=== PATIENT | female | born 1945 | race Caucasian/White ===

== ENCOUNTER 2017-06-17 08:28 | Day surgery (SDC) | payer OTHER ==
[~2017-06-17] VITALS: Ht 160 cm; Wt 72.7 kg
[2017-06-17 09:33] VITALS: BP 146/60
[2017-06-17] MEDS ORDERED: CYAN1TAB44 PO (09:49)
[2017-06-17] MEDS ORDERED: XALA2.5OS OD (09:49)
[2017-06-17] MEDS ORDERED: HYDR12.54 PO (09:49)
[2017-06-17] MEDS ORDERED: FOSI20TA3 PO (09:49)
[2017-06-17] MEDS ORDERED: LACT1CAP75 PO (09:49)
[2017-06-17] MEDS ORDERED: ATOR20TA65 PO (09:49)
[2017-06-17] MEDS ORDERED: METO50TA18 PO (09:49)
[2017-06-17] MEDS ORDERED: MULT-1250 PO (09:49)
[2017-06-17] MEDS ORDERED: CYCL30DR OP (09:49)
[2017-06-17] MEDS ORDERED: ASPI-555 PO (09:49)
[2017-06-17] MEDS ORDERED: EXEN2PEN SQ (09:49)
[2017-06-17] MEDS ORDERED: CANA1TAB3 PO (09:49)
[2017-06-17] MEDS ORDERED: INSU100V12 SQ (09:49)
[2017-06-17 10:43] VITALS: BP 110/54
[2017-06-17 11:03] VITALS: BP 128/47
== END 2017-06-17 11:20 ==
LOC: ENDO 08:28 → DAH 08:28 → ENDO 11:20
PROVIDERS: ATTEND Internal Medicine Gastroenterology
DX: K52.9 Noninfective gastroenteritis and colitis, unspecified (principal); K56.2 Volvulus; Z79.4 Long term (current) use of insulin; Z79.899 Other long term (current) drug therapy; I10 Essential (primary) hypertension; E11.9 Type 2 diabetes mellitus without complications; Z86.73 Personal history of transient ischemic attack (TIA), and cerebral infarction without residual deficits; F32.9 Major depressive disorder, single episode, unspecified; Z68.32 Body mass index [BMI] 32.0-32.9, adult; Z79.84 Long term (current) use of oral hypoglycemic drugs; Z98.890 Other specified postprocedural states
CPT/HCPCS: 45380; 82948 ×2; 88305; 88313; 93005; A4606

== ENCOUNTER 2017-08-15 11:46 | Emergency (ER) | payer OTHER ==
[~2017-08-15 11:46] MED LIST: ASPI-555 PO; ATOR20TA65 PO; CANA1TAB3 PO; CYAN1TAB44 PO; CYCL30DR OP; EXEN2PEN SQ; FOSI20TA3 PO; HYDR12.54 PO; INSU100V12 SQ; LACT1CAP75 PO; METO50TA18 PO; MULT-1250 PO; XALA2.5OS OD
[2017-08-15] MEDS ORDERED: DEXAMETHASONE SOD PHOSPHATE 10MG/ML 1ML VIAL ONE (12:33)
[2017-08-15] MEDS ORDERED: KETOROLAC TROMETHAMINE 30MG/ML ONE (12:33)
== END 2017-08-15 13:07 | disposition home or self-care (01) ==
LOC: EDH 11:46
DX: M54.41 Lumbago with sciatica, right side (principal); E11.9 Type 2 diabetes mellitus without complications; I25.10 Atherosclerotic heart disease of native coronary artery without angina pectoris; E78.5 Hyperlipidemia, unspecified; I10 Essential (primary) hypertension; G56.00 Carpal tunnel syndrome, unspecified upper limb; Z98.890 Other specified postprocedural states; W18.39XA Other fall on same level, initial encounter; Y93.01 Activity, walking, marching and hiking; Y92.89 Other specified places as the place of occurrence of the external cause; Y99.8 Other external cause status
CPT/HCPCS: 96372 ×2; 99284; J1100; J1885

== ENCOUNTER 2018-12-14 01:23 | Emergency (ER) | payer OTHER ==
[~2018-12-14 01:23] MED LIST changes: -FOSI20TA3 PO; +FOSI20TA66 PO
[2018-12-14] MEDS ORDERED: LIDOCAINE HCL 1% 20 ML VIAL ONE (01:51)
== END 2018-12-14 02:55 | disposition home or self-care (01) ==
LOC: EDH 01:23
DX: L72.3 Sebaceous cyst (principal); I25.10 Atherosclerotic heart disease of native coronary artery without angina pectoris; E11.9 Type 2 diabetes mellitus without complications; E78.5 Hyperlipidemia, unspecified; I10 Essential (primary) hypertension
CPT/HCPCS: 10060; 82948; 87070; 87076; 99282

== ENCOUNTER → 2021-07-04 | Outpatient (CLI) | payer MEDICARE ==
[~2021-07-04] MED LIST changes: -ASPI-555 PO; +ASPI-556 PO; -LACT1CAP75 PO; +LACT1CAP80 PO
== END | disposition home or self-care (01) ==
LOC: RAH 11:34
PROVIDERS: ATTEND Internal Medicine
DX: J84.10 Pulmonary fibrosis, unspecified (principal); I10 Essential (primary) hypertension
CPT/HCPCS: 71046

== ENCOUNTER → 2021-09-01 | Outpatient (CLI) | payer MEDICARE ==
[~2021-09-01] MED LIST changes: +ASCORBIC ACID PO; -CANA1TAB3 PO; +CHOLECALCIFEROL PO; +CHOLESTYRAMINE PO; -CYAN1TAB44 PO; +EMPA25TA PO; -FOSI20TA66 PO; +GLIM1TAB18 PO; -HYDR12.54 PO; -INSU100V12 SQ; +IRBE150T24 PO; -LACT1CAP80 PO; +METF-444 PO; +METO-391 PO; -METO50TA18 PO; +OMEP40CA21 PO; +SERT-438 PO; +TURMERIC PO; -XALA2.5OS OD
== END | disposition home or self-care (01) ==
LOC: SHCH 14:35
PROVIDERS: ATTEND Student in an Organized Health Care Education/Training Program
DX: R00.2 Palpitations (principal); I10 Essential (primary) hypertension; E11.9 Type 2 diabetes mellitus without complications; E78.5 Hyperlipidemia, unspecified
CPT/HCPCS: 93306

== ENCOUNTER → 2021-10-31 | Outpatient (CLI) | payer MEDICARE | END | disposition home or self-care (01) | LOC: OIH 09:47 | PROVIDERS: ATTEND Student in an Organized Health Care Education/Training Program | DX: I73.9 Peripheral vascular disease, unspecified (principal) | CPT/HCPCS: 93925 ==

== ENCOUNTER → 2022-09-30 | Emergency (ER) | payer MEDICARE ==
[~2022-09-30] VITALS: Ht 157.5 cm; Wt 69.9 kg
[~2022-09-30] MED LIST changes: +ACET-2079 PO
[2022-09-30 13:55] VITALS: BP 138/70; PULSE 82; RESP 16; O2SAT 96
[2022-09-30 14:25] LABS: BASOPHILS # (AUTO) 0.03 K/uL (0.00-0.20); BASOPHILS % (AUTO) 0.4 % (0.0-5.0); EOSINOPHILS # (AUTO) 0.08 K/uL (0.00-0.70); EOSINOPHILS % (AUTO) 1.1 % (0.0-8.0); HEMATOCRIT 39.8 % (36-48); IMMATURE GRANULOCYTE ABSOLUTE 0.04 K/uL (0-1); LYMPHOCYTES # (AUTO) 1.7 K/uL (1.0-4.8); LYMPHOCYTES % (AUTO) 23.2 % (21.0-51.0); MEAN CORPUSCULAR HEMOGLOBIN 30.4 pg (27.0-33.0); MEAN CORPUSCULAR HGB CONC 32.7 g/dL (32.0-36.0); MONOCYTES # (AUTO) 0.6 K/uL (0.1-1.0); MONOCYTES % (AUTO) 8.6 % (3.0-13.0); NEUTROPHILS # (AUTO) 4.7 K/uL (1.8-7.7); NEUTROPHILS % (AUTO) 66.1 % (40.0-77.0); PLATELET COUNT (AUTO) 281 K/uL (130-400); RED BLOOD CELL COUNT(AUTO) 4.28 MIL/uL (4.00-5.50); RED CELL DISTRIBUTION WIDTH 12.4 % (11.0-15.5); WHITE BLOOD COUNT (AUTO) 7.2 K/uL (4.8-10.8)
[2022-09-30 14:39] LABS: INR 0.93 (0.85-1.15); PROTHROMBIN TIME 10.4 SEC (9.6-11.6)
[2022-09-30 14:40] LABS: PARTIAL THROMBOPLASTIN TIME 26.3 SEC (26.3-35.5)
[2022-09-30 14:55] LABS: CREATININE 0.9 mg/dL (0.5-1.5); POTASSIUM 4.6 mmol/L (3.5-5.1)
[2022-09-30 15:00] LABS: ALBUMIN 3.6 g/dL (3.5-5.0); BILIRUBIN,TOTAL 0.4 mg/dL (0.2-1.0); TOTAL PROTEIN, SERUM 7.3 g/dL (6.0-8.3)
== END ==
LOC: EDH 13:10
DX: S90.01XA Contusion of right ankle, initial encounter (principal); M25.561 Pain in right knee; W18.39XA Other fall on same level, initial encounter; Y93.89 Activity, other specified; Y92.89 Other specified places as the place of occurrence of the external cause; Y99.8 Other external cause status
CPT/HCPCS: 29505; 36415; 70450; 71045; 72125; 80053; 84484; 85025; 85610; 85730; 93005; 93971